=== PATIENT | female | born 1950 | race Caucasian/White ===

== ENCOUNTER 2018-05-12 11:49 | Day surgery (SDC) | payer MEDICARE, OTHER ==
[~2018-05-12] VITALS: Ht 152.4 cm; Wt 70.8 kg
[~2018-05-12 11:49] MED LIST: AMOX500 PO; DIPH50; LEVO750 PO; LORA10ER PO; Multivitamin1 EAC1; OLOP.1OPSO OU; Omega 3 1,0001 EACH; PRED20 PO; PROGESTERONE PO; SELENIUM200 MC1; THYR60 PO; TRAM50 PO; VITAMIN D310000 UNIT; VITAMIN K240 MCG PO; ZINC50 M2
[2018-05-12] MEDS ORDERED: ALLEGRA ALLERG180 MG (12:48)
== END 2018-05-12 13:44 | disposition home or self-care (01) ==
LOC: ORSCSDS 11:49
PROVIDERS: Surgery
PROC: 0DBK8ZX Excision of Ascending Colon, Via Natural or Artificial Opening Endoscopic, Diagnostic (ICD-10-PCS; principal; 2018-05-12 13:00)
DX: Z12.11 Encounter for screening for malignant neoplasm of colon (principal); D12.2 Benign neoplasm of ascending colon; K63.89 Other specified diseases of intestine; J44.9 Chronic obstructive pulmonary disease, unspecified; E03.9 Hypothyroidism, unspecified; E78.5 Hyperlipidemia, unspecified; I10 Essential (primary) hypertension; Z87.11 Personal history of peptic ulcer disease; Z86.73 Personal history of transient ischemic attack (TIA), and cerebral infarction without residual deficits; Z87.891 Personal history of nicotine dependence; Z79.899 Other long term (current) drug therapy
CPT/HCPCS: 88305; J7120

== ENCOUNTER 2021-11-17 16:04 | Day surgery (SDC) | payer MEDICARE, OTHER ==
[~2021-11-17 16:04] MED LIST changes: +ALLEGRA ALLERG180 MG
[2021-11-17] MEDS ORDERED: Prinivil10 MG PO (16:27)
[2021-11-17] MEDS ORDERED: BREO ELLIPTA 11 EAC1 INH (16:28)
[2021-11-17] MEDS ORDERED: FLUT1DIS2 INH (16:29)
== END 2021-11-17 23:37 | disposition home or self-care (01) ==
LOC: ATC 16:04
DX: U07.1 COVID-19 (principal); J44.9 Chronic obstructive pulmonary disease, unspecified

== ENCOUNTER → 2022-09-25 | Outpatient (CLI) | payer MEDICARE, OTHER ==
[~2022-09-25] MED LIST changes: +BREO ELLIPTA 11 EAC1 INH; +FLUT1DIS2 INH; +Prinivil10 MG PO
[2022-09-25 18:12] LABS: Hematocrit 34.4 % (33.0-51.0); Hemoglobin 11.3 g/dL (11.5-16.0); Mean Corpuscular HGB 30.7 pg (26.0-34.0); Mean Corpuscular HGB Conc 32.8 g/dL (31.5-36.5); Mean Corpuscular Volume 94 fL (80-100); Mean Platelet Volume 9.8 fL (9.1-12.4); Platelet Count 523 K/mm3 (150-400); RDW Coefficient Variation 14.7 % (11.7-14.2); RDW Standard Deviation 50.9 fL (35.1-46.3); Red Blood Cell Count 3.68 M/mm3 (3.80-5.20); White Blood Cell Count 8.82 K/mm3 (4.00-11.30)
[2022-09-25 18:41] LABS: Albumin, Blood 3.3 g/dL (3.4-5.0); Albumin/Globulin Ratio 0.8 (0.8-1.8); Bilirubin, Total 0.2 mg/dL (0.1-1.0); Bun/Creatinine Ratio 40.2 (12.0-20.0); Calcium, Blood 9.2 mg/dL (8.5-10.1); Creatinine, Blood 0.57 mg/dL (0.40-1.00); Globulin, Blood 4.1 g/dL (2.2-4.0); Magnesium, Blood 2.4 mg/dL (1.6-2.4); Potassium, Blood 3.9 mmol/L (3.5-5.5); Total Protein, Blood 7.4 g/dL (6.4-8.2)
== END ==
LOC: LAB HH 17:03
PROVIDERS: Nurse Practitioner Family
DX: F32.A Depression, unspecified (principal); I21.4 Non-ST elevation (NSTEMI) myocardial infarction; E61.2 Magnesium deficiency; E87.8 Other disorders of electrolyte and fluid balance, not elsewhere classified; E55.9 Vitamin D deficiency, unspecified; D50.0 Iron deficiency anemia secondary to blood loss (chronic)
CPT/HCPCS: 80053; 82306; 83735; 85027

== ENCOUNTER 2024-06-22 11:51 | Emergency (ER) | payer MEDICARE, OTHER ==
[~2024-06-22] VITALS: Ht 152.4 cm; Wt 76.7 kg
[~2024-06-22 11:51] MED LIST changes: +FUROSEMIDE40 MG PO; +LEVOTHYROXINE112 M18 PO; +LIOT5 PO; +METOPROLOL TART5010 PO; +XARELTO20 M1 PO; +[UNRECOGNIZED DRUG - CODE] PO
[2024-06-22 11:57] VITALS: BP 162/70
== END 2024-06-22 13:33 | disposition home or self-care (01) ==
LOC: ER 11:51
DX: S00.03XA Contusion of scalp, initial encounter (principal); W01.0XXA Fall on same level from slipping, tripping and stumbling without subsequent striking against object, initial encounter; Z87.891 Personal history of nicotine dependence; Z86.73 Personal history of transient ischemic attack (TIA), and cerebral infarction without residual deficits; Z79.899 Other long term (current) drug therapy; Z79.51 Long term (current) use of inhaled steroids; Z91.041 Radiographic dye allergy status; Z91.018 Allergy to other foods; Z88.8 Allergy status to other drugs, medicaments and biological substances
CPT/HCPCS: 70450; 99283-25

== ENCOUNTER 2024-10-26 15:59 | Emergency (ER) | payer MEDICARE, OTHER ==
[~2024-10-26] VITALS: Ht 152.4 cm; Wt 76.2 kg
[2024-10-26 16:19] VITALS: BP 165/67
== END 2024-10-26 17:54 | disposition home or self-care (01) ==
LOC: ER 15:59
DX: S09.90XA Unspecified injury of head, initial encounter (principal); W22.09XA Striking against other stationary object, initial encounter; Z87.891 Personal history of nicotine dependence; Z79.899 Other long term (current) drug therapy; Z79.51 Long term (current) use of inhaled steroids; Z91.041 Radiographic dye allergy status; Z88.8 Allergy status to other drugs, medicaments and biological substances
CPT/HCPCS: 70450; 99283-25